=== PATIENT | male | born 1985 | race Two or more races ===

== ENCOUNTER 2025-03-03 13:53 | Emergency (ER) | payer MEDICAID, SELFPAY ==
[2025-03-03 13:53] VITALS: BMI 27.6
[2025-03-03 14:02] VITALS: BP 142/88; PULSE 88; RESP 18; TEMP 36.9; O2SAT 99
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
== END 2025-03-03 16:02 | disposition home or self-care (01) ==
PROVIDERS: Emergency Provider Family Medicine
DX: S13.4XXA Sprain of ligaments of cervical spine, initial encounter (principal); R51.9 Headache, unspecified; R07.9 Chest pain, unspecified; V89.2XXA Person injured in unspecified motor-vehicle accident, traffic, initial encounter
CPT/HCPCS: 70450; 71046; 72125; 99283